=== PATIENT | female | born 1960 | race Caucasian/White ===

== ENCOUNTER → 2021-07-13 | Outpatient (CLI) | payer OTHER ==
--- NOTE | 2021-07-13 14:48 | REP ---
INDICATION: POST MENOPAUSAL BLEEDING, HX BREAST CA COMPARISON: None. TECHNIQUE: Transabdominal pelvic ultrasound followed by transvaginal examination for better evaluation of the endometrium and adnexa with color Doppler evaluation of the ovaries. FINDINGS: Bladder is unremarkable and measures 10.5 x 4.7 x 9.8 cm. Enlarged heterogeneous retroverted uterus measures 10.9 x 5.9 x 8.4 cm. The endometrial complex is thickened to 35 mm and demonstrates complex cystic and calcific changes. Bilateral ovaries are not identified. No pelvic fluid or adnexal mass lesion noted. IMPRESSION: Enlarged heterogeneous uterus with thickened complex endometrial complex measuring 35 mm. Findings require further investigation. <Electronically signed by Alan Shelton > 07/13/21 [id number]
== END ==
LOC: M RAD 13:57
PROVIDERS: ATTEND Obstetrics & Gynecology
DX: N95.0 Postmenopausal bleeding (principal); Z85.3 Personal history of malignant neoplasm of breast